=== PATIENT | female | born 1990 | race African-American/Black ===

== ENCOUNTER 2018-11-23 15:02 | Emergency (ER) | payer OTHER ==
[~2018-11-23] VITALS: Ht 170.2 cm; Wt 69.4 kg
[2018-11-23 17:36] LABS: BASOPHILS 0.4 % (0.0-2.0); HEMATOCRIT 37.7 % (37.0-47.0); HEMOGLOBIN 13.5 gm/dL (12.0-15.0); LYMPHOCYTES 27.7 % (24.0-44.0); MCHC 35.7 g/dL (28.0-37.0); MCV 86.8 fL (80.0-100.0); MONOCYTES 6.7 % (1.0-8.0); PLATELET COUNT 348 thou/uL (150-400); POLYS 63.2 % (36.0-66.0); RBC 4.35 mil/uL (4.20-5.00); RDW 12.7 % (10.5-14.5); WBC 9.5 thou/uL (4.0-11.0)
[2018-11-23 18:35] VITALS: BP 135/86
[2018-11-23] MEDS ORDERED: PRENATAL COMPL1 EACH PO (18:38)
[2018-11-23] MEDS ORDERED: TYLENOL325 MG PO (18:38)
[2018-11-23] MEDS ORDERED: PHENERGAN 25 MG25 M1 PO (19:14)
== END 2018-11-23 19:31 | disposition home or self-care (01) ==
LOC: ER 15:02
PROVIDERS: Emergency Medicine
DX: O26.891 Other specified pregnancy related conditions, first trimester (principal); R10.9 Unspecified abdominal pain; M25.562 Pain in left knee; M25.572 Pain in left ankle and joints of left foot; Z98.890 Other specified postprocedural states; Z3A.00 Weeks of gestation of pregnancy not specified; W00.0XXA Fall on same level due to ice and snow, initial encounter; Y92.89 Other specified places as the place of occurrence of the external cause; Y93.89 Activity, other specified; Y99.8 Other external cause status

== ENCOUNTER 2018-11-29 15:31 | Emergency (ER) | payer OTHER ==
[~2018-11-29] VITALS: Ht 170.2 cm; Wt 69.4 kg
[~2018-11-29 15:31] MED LIST: PHENERGAN 25 MG25 M1 PO; PRENATAL COMPL1 EACH PO; TYLENOL325 MG PO
[2018-11-29 16:41] LABS: URINE BILIRUBIN NEGATIVE (Negative); URINE BLOOD NEGATIVE (Negative); URINE CLARITY CLEAR; URINE COLOR YELLOW; URINE GLUCOSE-RANDOM* NEGATIVE (Negative); URINE KETONES NEGATIVE (Negative); URINE LEUKOCYTES-REFLEX NEGATIVE (Negative); URINE NITRITE-REFLEX NEGATIVE (Negative); URINE PROTEIN (DIPSTICK) NEGATIVE (Negative); URINE UROBILINOGEN 0.2 E.U./dl (0.2-1.0)
[2018-11-29 18:35] VITALS: BP 127/83
== END 2018-11-29 18:44 | disposition left against medical advice (07) ==
LOC: ER 15:31
PROVIDERS: Physician Assistant
DX: O26.891 Other specified pregnancy related conditions, first trimester (principal); R10.2 Pelvic and perineal pain; Z3A.01 Less than 8 weeks gestation of pregnancy; Z98.890 Other specified postprocedural states